=== PATIENT | female | born 1990 | race Caucasian/White ===

== ENCOUNTER 2016-10-15 10:38 | Emergency (ER) | payer SELFPAY ==
[~2016-10-15] VITALS: Ht 154.9 cm; Wt 117.9 kg
[~2016-10-15 10:38] MED LIST: AMOXICILLIN500 MG PO; FLONASE 0.05% 121 EA NAS; ZYRTEC10 MG PO
[2016-10-15 11:18] LABS: BASO % 0.3 % (0.0-1.0); EOS # 0.1 10*3/uL (0.0-0.4); EOS % 0.9 % (1.0-4.0); IG # 0.1 10*3/uL (0.0-0.1); LYMPH # 2.4 10*3/uL (1.3-4.4); LYMPH % 15.3 % (27.0-41.0); MEAN CELL VOLUME 84.4 fl (81.0-99.0); MEAN CORPUSCULAR HGB 27.4 pg (27.0-31.0); MEAN CORPUSCULAR HGB CONC 32.5 g/dl (33.0-37.0); MEAN PLATELET VOLUME 10.7 fl (9.6-12.3); MONO % 6.4 % (3.0-9.0); NEUT # 12.1 10*3/uL (2.3-7.9); NEUT % 76.7 % (47.0-73.0); PLATELET COUNT AUTOMATED 364 10*3/uL (130-400); RED BLOOD COUNT 4.74 10*6/uL (4.10-5.10); WHITE BLOOD COUNT 15.7 10*3/uL (4.8-10.8)
[2016-10-15 11:35] LABS: BUN 13 mg/dl (7-24); CARBON DIOXIDE 21 mmol/L (21-32); CHLORIDE 107 mmol/L (98-107); EST GLOM FILT AFRICAN AMERICAN > 60 ml/min; GLUCOSE 94 mg/dL (65-99); POTASSIUM 3.5 mmol/L (3.5-5.1); SODIUM 139 mmol/L (136-145)
== END 2016-10-15 12:59 | disposition home or self-care (01) ==
LOC: ED 10:38
PROVIDERS: Emergency Medicine
DX: J02.0 Streptococcal pharyngitis (principal)

== ENCOUNTER 2019-04-02 10:30 | Emergency (ER) | payer SELFPAY ==
[~2019-04-02] VITALS: Ht 157.4 cm; Wt 127.0 kg
== END 2019-04-02 12:19 | disposition home or self-care (01) ==
LOC: ED 10:30
DX: S93.402A Sprain of unspecified ligament of left ankle, initial encounter (principal); S80.12XA Contusion of left lower leg, initial encounter; W10.9XXA Fall (on) (from) unspecified stairs and steps, initial encounter; Y93.01 Activity, walking, marching and hiking; Y92.89 Other specified places as the place of occurrence of the external cause; Y99.8 Other external cause status